=== PATIENT | female | born 1955 | race Caucasian/White ===

== ENCOUNTER → 2016-10-21 | Day surgery (SDC) | payer OTHER ==
[~2016-10-21] VITALS: Ht 165.1 cm; Wt 63.5 kg
[~2016-10-21] MED LIST: AMOXIL500 MG PO; BUSPIRONE HCL15 M1 PO; BUSPIRONE HCL30 MG PO; CYCLOBENZAPRINE10 M1 PO; DESYREL50 MG PO; ENDOCET 325 MG-1 TA1 PO; FLEXERIL10 MG PO; FLUOXETINE HCL10 M2 PO; FLUOXETINE20 MG PO; GABAPENTIN400 M2 PO; LAMICTAL200 M1 PO; LAMOTRIGINE100 M2 PO; MOTRIN 600 MG600 MG PO; NAPROSYN500 M1 PO; OXYBUTYNIN CHLO10 M1 PO; PANTOPRAZOLE SO40 M1 PO; PERCOCET 5-3251 EACH PO; PROZAC 10MG10 MG PO; SEROQUEL50 M1 PO; TRAMADOL HCL50 M1 PO; VICODIN10-300 PO; WELLBUTRIN XL150 MG PO; WELLBUTRIN XL300 M2 PO; WELLBUTRIN XL300 MG PO
--- NOTE | 2016-10-21 08:02 | Operative Report ---
Operative/Inv Procedure Report Surgery Date: 10/21/16 Name of Procedure: Cataract extraction lens implantation right eye Pre-Operative Diagnosis: Age-related cataract right eye 20/40 vision 20/70 glare vision Post-Operative Diagnosis: Same Estimated Blood Loss: none Surgeon/Natural Resources Manager: FERNANDA RODRIGUEZ,MOISE Harding Anesthesia: local monitored anesthesi Complications: None Operative/Procedure Note Note: The patient was brought to the operating room standard monitoring equipment was attached the patient was prepped and draped in the usual fashion for intraocular surgery. A lid speculum was placed to retract the lids. The case was begun by making 2 partial-thickness corneal relaxing incisions at 80. A temporal incision with a 2.4 mm keratome. The eye was stabilized with a Ferrer ring during this incision. 1 mL of non-preserved lidocaine was introduced into the anterior chamber to provide anesthesia. The anterior chamber was then filled and deepened with viscoelastic. A curvilinear capsulorrhexis was achieved using a 30-gauge needle and is a cystotome and capsulorrhexis was finished using a Utrata forceps. A second or paracentesis incision was made temporally with a 1 mm MVR blade. The lens was then hydrodissected with balanced salt solution and found to be rotatable. The lens was emulsified using phacoemulsification and a modified four-quadrant cracking technique. The residual cortical material was removed using automated irrigation and aspiration and as much of the anterior capsular rim was cleaned as well as possible. The posterior capsule was cleaned first with the automated machine on a low setting and then manually with a Marquis squeegee. The capsular bag was deepened with viscoelastic. The lens a Akreos AO 60 15.5 Diopter placed into the bag under direct visualization and rotated so that the haptics were at 12 and 6:00. Viscoelastic was then removed from the eye by flushing it out and then by automated irrigation and aspiration. The eye was pressurized to a normal tone. 1/10 of a cc of vancomycin solution was introduced into the anterior chamber to provide antibiotic prophylaxis. The wounds were sealed by hydrating the stroma adjacent to them and the eye was left at a proper tone after the wounds were checked and found not to be leaking. The lid speculum was removed from the orbit. Antibiotic and steroid drops were placed on the eye and then the eye was shielded. Monitoring equipment was removed from the patient and the patient was removed from the operative suite to the holding area. The patient tolerated the procedure well and will be seen in the office tomorrow.
== END ==
LOC: STS 03:03
DX: H25.9 Unspecified age-related cataract (principal); G62.9 Polyneuropathy, unspecified; F17.200 Nicotine dependence, unspecified, uncomplicated
CPT/HCPCS: J2250; V2632

== ENCOUNTER → 2016-11-03 | Day surgery (SDC) | payer OTHER ==
[~2016-11-03] VITALS: Ht 165.1 cm; Wt 63.5 kg
--- NOTE | 2016-11-03 11:15 | Operative Report ---
Operative/Inv Procedure Report Surgery Date: 11/03/16 Name of Procedure: Cataract extraction lens implantation left eye Pre-Operative Diagnosis: Age-related cataract left eye when 20/30 vision 20/60 glare vision Post-Operative Diagnosis: Same Estimated Blood Loss: none Surgeon/Feed Project Engineer: FERNANDA RODRIGUEZ,MOISE Harding Anesthesia: local monitored anesthesi Complications: None Operative/Procedure Note Note: The patient was brought to the operating room standard monitoring equipment was attached the patient was prepped and draped in the usual fashion for intraocular surgery. A lid speculum was placed to retract the lids. The case was begun by making a temporal incision with a 2.4 mm keratome. The eye was stabilized with a Ferrer ring during this incision. 1 mL of non-preserved lidocaine was introduced into the anterior chamber to provide anesthesia. The anterior chamber was then filled and deepened with viscoelastic. A curvilinear capsulorrhexis was achieved using a 30-gauge needle and is a cystotome and capsulorrhexis was finished using a Utrata forceps. A second or paracentesis incision was made temporally with a 1 mm MVR blade. The lens was then hydrodissected with balanced salt solution and found to be rotatable. The lens was emulsified using phacoemulsification and a modified four-quadrant cracking technique. The residual cortical material was removed using automated irrigation and aspiration and as much of the anterior capsular rim was cleaned as well as possible. The posterior capsule was cleaned first with the automated machine on a low setting and then manually with a Marquis squeegee. The capsular bag was deepened with viscoelastic. The lens a Akreos AO60 16.0 Diopter placed into the bag under direct visualization and rotated so that the haptics were at 12 and 6:00. Viscoelastic was then removed from the eye by flushing it out and then by automated irrigation and aspiration. The eye was pressurized to a normal tone. 1/10 of a cc of vancomycin solution was introduced into the anterior chamber to provide antibiotic prophylaxis. The wounds were sealed by hydrating the stroma adjacent to them and the eye was left at a proper tone after the wounds were checked and found not to be leaking. The lid speculum was removed from the orbit. Antibiotic and steroid drops were placed on the eye and then the eye was shielded. Monitoring equipment was removed from the patient and the patient was removed from the operative suite to the holding area. The patient tolerated the procedure well and will be seen in the office tomorrow.
== END ==
LOC: STS 01:16
DX: H25.9 Unspecified age-related cataract (principal); N32.9 Bladder disorder, unspecified; F17.200 Nicotine dependence, unspecified, uncomplicated
CPT/HCPCS: J2250; V2632